=== PATIENT | female | born 1990 | race African-American/Black ===

== ENCOUNTER 2017-03-06 19:36 | Emergency (ER) | payer OTHER ==
[~2017-03-06] VITALS: Ht 167.6 cm; Wt 73.9 kg
[2017-03-06] MEDS ORDERED: GLUCOPHAGE XR750 MG PO (19:47)
[2017-03-06] MEDS ORDERED: GLUCOTROL5 MG PO (19:47)
[2017-03-06 20:20] LABS: ABSOLUTE NEUTROPHILS 8.8 thou/uL (1.4-8.2); BASOPHILS 0.5 % (0.0-2.0); EOSINOPHILS 0.7 % (0.0-3.0); HEMATOCRIT 34.9 % (37.0-47.0); LYMPHOCYTES 17.7 % (24.0-44.0); MCH 27.6 pg (26.0-34.0); MCHC 34.3 g/dL (28.0-37.0); MCV 80.5 fL (80.0-100.0); MONOCYTES 7.9 % (1.0-8.0); PLATELET COUNT 311 thou/uL (150-400); POLYS 73.2 % (36.0-66.0); RBC 4.33 mil/uL (4.20-5.00); RDW 13.8 % (10.5-14.5)
[2017-03-06 20:30] LABS: MANUAL DIFF NO
[2017-03-06 20:34] LABS: ALBUMIN 3.6 g/dL (3.4-5.0); CALCIUM 8.9 mg/dL (8.5-10.1); CREATININE 0.7 mg/dL (0.6-1.0); POTASSIUM 3.4 mmol/L (3.5-5.1); TOTAL BILIRUBIN 0.3 mg/dL (<0.1-1.0); TOTAL PROTEIN 8.1 g/dL (6.4-8.2)
[2017-03-06] MEDS ORDERED: CLEOCIN HCL150 MG PO (21:34)
[2017-03-06] MEDS ORDERED: HYCET 7.5 MG-3473 ML PO (21:43)
[2017-03-06 22:28] VITALS: BP 121/80
== END 2017-03-06 22:28 | disposition home or self-care (01) ==
LOC: ER 19:36
PROVIDERS: Emergency Medicine
DX: J02.9 Acute pharyngitis, unspecified (principal); R09.81 Nasal congestion; R06.00 Dyspnea, unspecified; E11.9 Type 2 diabetes mellitus without complications; Z88.2 Allergy status to sulfonamides; F10.99 Alcohol use, unspecified with unspecified alcohol-induced disorder

== ENCOUNTER 2017-08-07 16:17 | Emergency (ER) | payer OTHER ==
[~2017-08-07] VITALS: Ht 167.6 cm; Wt 74.8 kg
[~2017-08-07 16:17] MED LIST: CLEOCIN HCL150 MG PO; GLUCOPHAGE XR750 MG PO; GLUCOTROL5 MG PO; HYCET 7.5 MG-3473 ML PO
[2017-08-07 16:18] VITALS: BP 123/85
[2017-08-07] MEDS ORDERED: ESTARYLLA1 EACH PO (16:21)
[2017-08-07] MEDS ORDERED: GLYBURIDE 2.52.5 MG PO (16:21)
[2017-08-07] MEDS ORDERED: PREDNISONE 20 M20 MG PO (16:49)
== END 2017-08-07 16:58 | disposition home or self-care (01) ==
LOC: ER 16:17
DX: L23.9 Allergic contact dermatitis, unspecified cause (principal); E11.9 Type 2 diabetes mellitus without complications; Z88.2 Allergy status to sulfonamides

== ENCOUNTER 2021-03-23 01:03 | Emergency (ER) | payer OTHER ==
[~2021-03-23] VITALS: Ht 162.6 cm; Wt 65.3 kg
[~2021-03-23 01:03] MED LIST changes: +ESTARYLLA1 EACH PO; +GLYBURIDE 2.52.5 MG PO; +PREDNISONE 20 M20 MG PO
[2021-03-23] MEDS ORDERED: GLIMEPIRIDE1 MG PO (01:16)
[2021-03-23 01:34] LABS: URINE BILIRUBIN NEGATIVE (Negative); URINE BLOOD NEGATIVE (Negative); URINE CLARITY CLEAR; URINE COLOR YELLOW; URINE GLUCOSE-RANDOM* 1+ (Negative); URINE KETONES NEGATIVE (Negative); URINE LEUKOCYTES-REFLEX NEGATIVE (Negative); URINE NITRITE-REFLEX NEGATIVE (Negative); URINE PROTEIN (DIPSTICK) NEGATIVE (Negative); URINE SPECIFIC GRAVITY <= 1.005 (1.005-1.035); URINE UROBILINOGEN 0.2 E.U./dl (0.2-1.0)
[2021-03-23 01:59] LABS: ABSOLUTE NEUTROPHILS 4.1 thou/uL (1.4-8.2); BASOPHILS 0.9 % (0.0-2.0); EOSINOPHILS 1.4 % (0.0-3.0); HEMOGLOBIN 11.8 gm/dL (12.0-15.0); MCH 28.7 pg (26.0-34.0); MCHC 33.8 g/dL (28.0-37.0); MONOCYTES 8.3 % (1.0-8.0); PLATELET COUNT 368 thou/uL (150-400); POLYS 58.4 % (36.0-66.0); RBC 4.12 mil/uL (4.20-5.00); RDW 13.3 % (10.5-14.5)
[2021-03-23 03:04] VITALS: BP 118/74
== END 2021-03-23 03:04 | disposition home or self-care (01) ==
LOC: ER 01:03
PROVIDERS: Emergency Medicine
DX: O20.0 Threatened abortion (principal); Z3A.01 Less than 8 weeks gestation of pregnancy; Z88.2 Allergy status to sulfonamides; Z79.899 Other long term (current) drug therapy